=== PATIENT | female | born 1985 | race Caucasian/White ===

== ENCOUNTER 2022-05-02 11:36 | Emergency (ER) | payer BC, SELFPAY ==
--- NOTE | ~2022-05-02 | US_ITS ---
Pelvic ultrasound. Clinical History: Pelvic pain Technique: Realtime transabdominal and transvaginal scanning of the pelvis was performed. Color flow Doppler and Doppler spectral analysis were performed. Findings: The uterus is retroverted. The endometrial stripe has a thickness of 5 mm. No focal mass i s identified. The right ovary measures 6.4 x 6.4 x 5.1 cm. Simple right ovarian cyst measures 6.1 cm in diameter. The left ovary measures 2.6 x 1.4 x 2.6 cm. No significant left ovarian or adnexal mass is seen. *Flow present in both ovaries on Doppler spectral analysis. There is no evidence of free fluid in the cul de sac. Impression: 6.1 cm simple right ovarian cyst. No evidence for torsion. Reviewed, dictated and finalized at [facility]. Impression: 6.1 cm simple right ovarian cyst. No evidence for torsion.
--- NOTE | ~2022-05-02 | CT_ITS ---
EXAMINATION: CT abdomen pelvis w con DATE: 05/02/2022 12:46 INDICATION: Right lower quadrant abdominal pain. TECHNIQUE: Computed tomography (CT) of the abdomen and pelvis was performed with 100 mL Omnipaque 350 intravenous contrast. Automated exposure control and iterative reconstruction technique were employe d. The dose-length product was 284.20 mGy-cm. COMPARISON: None. FINDINGS: The visualized portions of the lung bases demonstrate mild atelectasis. No pleural effusion . The heart size is normal. No pericardial effusion. There is a 6 mm cyst in the liver. The gallbladd er, spleen, pancreas, and adrenal glands are normal. There are cysts in the kidneys measuring up to 7 mm. There are no dilated loops of bowel. The appendix is normal. There is a 5.1 cm cyst in right ova ry. There is a right inguinal hernia containing fat with fat stranding suggesting inflammation or sca rring. There are no pathologically enlarged lymph nodes. There is no free intraperitoneal fluid. The bones are unremarkable. IMPRESSION: 1. Right femoral hernia containing fat. Fat stranding may be inflammation or scarring. 2. 5.1 cm cyst in right ovary, likely benign. Consider pelvis ultrasound. Reviewed, dictated and finalized at location [facility]. IMPRESSION: 1. Right femoral hernia containing fat. Fat stranding may be inflammation or sc arring. 2. 5.1 cm cyst in right ovary, likely benign. Consider pelvis ultrasound.
[2022-05-02 11:39] VITALS: BP 150/102; RESP 16; TEMP 36.3; O2SAT 100
[2022-05-02 11:50] LABS: Basophils Percent Auto 0.4 % (0.2-1.2); Eosinophils Absolute Auto 0.1 K/mm3 (0-0.3); Hematocrit 41.2 % (37.0-47.0); Hemoglobin 14.1 g/dL (12.0-15.0); Immature Granulocyte Absolute 0.03 K/mm3 (0.00-0.031); Immature Granulocyte Percent A 0.4 % (0-0.5); Lymphocytes Absolute Auto 2.09 K/mm3 (0.9-3.2); Mean Corpuscular HGB Conc 34.2 g/dl (32-36); Mean Corpuscular Hemoglobin 32.3 pg (26-34); Mean Corpuscular Volume 94.3 fl (80-100); Mean Platelet Volume 8.8 fl (7.4-10.4); Monocytes Absolute Auto 0.5 K/mm3 (0.1-0.6); Monocytes Percent Auto 7.5 % (2.6-8.5); Neutrophils Absolute Auto 4.2 K/mm3 (1.3-6.7); Neutrophils Percent Auto 60.7 % (45.5-73.1); Platelet Count Result 314 k/mm3 (150-375); Red Blood Count 4.37 M/mm3 (4.2-5.4); Red Cell Distribution Width 11.7 % (11.5-14.5)
[2022-05-02 11:58] LABS: Alanine Aminotransferase 21 U/L (6-35); Albumin Level 4.7 g/dL (3.5-5.1); Alkaline Phosphatase 103 U/L (38-126); Anion Gap 6 mmol/L (8-16); Aspartate Amino Transferase 24 U/L (14-36); Bilirubin,Total 2.2 mg/dL (0.2-1.3); Blood Urea Nitrogen 9 mg/dL (7-17); Calcium 9.2 mg/dL (8.4-10.2); Carbon Dioxide 30 mmol/L (22-30); Chloride 105 mmol/L (98-107); Estimated CRCL calculation 78 ml/min; Estimated Glomerular Filt Rate > 60; Glucose 94 mg/dL (65-110); Lipase 57 U/L (23-300); Potassium 3.9 mmol/L (3.4-5.0); Sodium 141 mmol/L (137-145)
[2022-05-02] MEDS: SODIUM CHLORIDE 0.9% IV 1,000 ML 999 ML IV CONT (12:11)
[2022-05-02] MEDS: KETOROLAC 30 MG/ML VIAL (*BKC) IV PUSH (12:11)
[2022-05-02 12:20] LABS: Add Urine Microscopic? YES; Appearance Urine Turbid (Clear); Bacteria Urine 3+ /hpf; Bilirubin Urine Negative (Negative); Blood Urine 1+ (Negative); Color Urine Dark Yellow (Yellow); Glucose Urine UA Negative (Negative); Ketones Urine 1+ mg/dL (Negative); Leukocyte Esterase Ur Trace LEU/UL (Negative); Need Manual Microscopic Reviewed; Nitrate Urine Negative (Negative); Protein Urine 2+ mg/dL (Negative); Specific Grav Ur 1.023 (1.001-1.035); Squamous Epithelial Cell Urine Many /hpf (Few); WBC Urine 0-5 /hpf
--- NOTE | 2022-05-02 15:24 | ED.ABDPAIN ---
HPI - Abdominal Pain General Chief Complaint: Abdominal Pain Stated Complaint: hernia Time Seen by Provider: 05/02/22 11:45 Source: RN notes reviewed History of Present Illness HPI narrative: Patient presents emergency department from home for abdominal pain. Patient states that symptoms began 2 days ago after she was lifting a heavy container states she noted pain in the right lower quadrant with a small mass noted there states that the area is tender and she is concerned about a hernia. She states that her mother has a hernia in the same area. She states that she has had no fevers or chills she denies any nausea vomiting or diarrhea. States that the area of swelling does not seem to get larger or smaller states she is currently on her menstrual cycle. States she did not take anything for the pain Related Data Allergies Allergy/AdvReac Type Severity Reaction Status Date / Time No Known Allergies Allergy Verified 05/02/22 11:37 Review of Systems Review of Systems: Gen.: Denies fevers or chills ENT: Denies congestion Respiratory: Denies shortness of breath or cough CV: Denies chest pain or palpitations GI: See HPI states a menstrual cycle Musculoskeletal: Denies back pain or muscle pain Neuro: Denies numbness, tingling, weakness or focal weakness Skin: Denies rash Except as documented, all other systems reviewed and negative [facility] Past Medical History Medical History (Updated 05/02/22 @ 15:28 by Neel Lee DO) Patient denies significant medical history Social History Social History (Updated 05/02/22 @ 15:26 by Neel Lee DO) Smoking status: Never smoker Exam Narrative: APPEARANCE: No acute distress, nontoxic, resting in bed EYES: EOMI HEENT: Normocephalic, atraumatic, OMM RESPIRATORY: No respiratory distress Clear to auscultation bilaterally with no rhonchi wheezing or rales. CARDIOVASCULAR: Regular rate and rhythm without murmurs rubs or gallops. ABDOMINAL: Soft, nondistended mild tenderness in the right lower quadrant no tenderness in the right upper quadrant, left upper quadrant left lower quadrant no rebound or guarding, the right inguinal region has a small firm hernia palpated that is tender to palpation and not reducible MUSCULOSKELETAl: Moves all extremities. No clubbing, cyanosis or edema. NEURO: Awake and alert. Following commands, speech normal, no focal deficits SKIN:: Warm, dry. No rashes lesions or abrasions PSYCHIATRIC: Normal affect/mood, Course Course Emergency Course: Discussed with Dr. Douglas for general surgery presentation work-up reviewed the patient's CT scan this time feels patient may be discharged to follow-up as an outpatient has hernia only containing fat at this time Discussed with patient results of workup and diagnosis. Discussed need for follow-up with primary care, proper use of medication, and reasons to return to the emergency department. Patient understands and agrees to current treatment plan discussed with patient hernia need follow-up with general surgery also discussed ovarian cyst and need follow-up with [facility] for she follows with Dr. Godinez Vital Signs Vital signs: Vital Signs Temperature 97.3 F L 05/02/22 11:39 Respiratory Rate 16 05/02/22 11:39 Blood Pressure 150/102 H 05/02/22 11:39 Pulse Oximetry 100 05/02/22 11:39 Oxygen Delivery Room Air 05/02/22 11:39 Temperature 97.3 F L 05/02/22 11:39 Respiratory Rate 16 05/02/22 11:39 Blood Pressure 150/102 H 05/02/22 11:39 Pulse Oximetry 100 05/02/22 11:39 Oxygen Delivery Room Air 05/02/22 11:39 MDM - Abdominal Pain MDM Narrative Medical decision making narrative: Patient presented for right lower quadrant abdominal pain notes a small mass in the area that is consistent with a hernia CT scan only shows a fat-containing hernia with no bowel present discussed this with general surgeon to feel the patient to be discharged home as an outpatient also has ovarian cyst f
[2022-05-02] MEDS: NITROFURANTOIN MONOHYD MACROCR 100 MG CAP PO (15:36)
[2022-05-02 15:43] VITALS: BP 136/90; PULSE 86; RESP 14; O2SAT 100
== END 2022-05-02 15:44 | disposition home or self-care (01) ==
PROVIDERS: Emergency Provider Emergency Medicine; PCP Internal Medicine
DX: K41.90 Unilateral femoral hernia, without obstruction or gangrene, not specified as recurrent (principal); N83.201 Unspecified ovarian cyst, right side; N39.0 Urinary tract infection, site not specified
CPT/HCPCS: 36415; 74177; 76830; 76856; 80053; 81001; 81025; 83690; 85025; 96361; 96374; 99284; A9270; J1885; J7030; Q9967

== ENCOUNTER 2023-01-17 21:06 | Emergency (ER) | payer BC, SELFPAY ==
[2023-01-17 21:43] VITALS: BP 158/106; PULSE 88; RESP 18; TEMP 36.3; O2SAT 98
--- NOTE | 2023-01-17 22:59 | ED.GENADULT ---
[facility] General Adult General Chief complaint: Neck Pain/Injury Stated complaint: Can't turn head Time Seen by Provider: 01/17/23 22:59 Source: patient Mode of arrival: ambulatory Limitations: no limitations History of Present Illness [facility] narrative: this is a 37-year-old female who presents to the ED with chief complaint of left-sided neck pain X2 days. Reports that she has had recent upper respiratory infection and cough. She feels the cough is brought on the neck pain. She feels very tight in the left side of the neck. Denies fevers, chills, nausea, vomiting, headache. Related Data Allergies Allergy/AdvReac Type Severity Reaction Status Date / Time No Known Allergies Allergy Verified 05/12/22 14:15 Review of Systems Review of Systems: All systems as dictated in [facility] Past Medical History Medical History Patient denies significant medical history Social History Social History (Updated 05/12/22 @ 14:17 by Geri Almaraz MA) Smoking status: Never smoker Alcohol intake: never Substance use: never Substance use type: does not use Living arrangements: with family Gender identity (if verbalized by the patient): Female Sexual Orientation (if Verbalized by the Patient): Straight or Heterosexual Exam Narrative: GENERAL: Well-appearing, well-nourished, and in no acute distress. HEAD: Normocephalic, atraumatic. EYES: PERRLA and EOMI. ENT: Nares clear, no rhinorrhea or epistaxis. Mucous membranes moist. Oropharynx without tonsillar hypertrophy exudate or other lesions. NECK: Supple. No adenopathy or masses. No meningeal signs. CHEST: No respiratory distress. Clear to auscultation. No wheezes rales or rhonchi HEART: Regular rate and rhythm. No murmur heard. Normal peripheral pulses. ABDOMEN: Soft, nontender, nondistended, normal active bowel sounds. MSK: Left paraspinal tenderness in the C-spine. No midline spinal tenderness throughout. Limited range of motion due to pain, worse with turning the head to the left. SKIN: Warm, dry, no rash. NEURO: Alert and oriented x3. No focal deficits. PSYCH: Normal mood and affect. Course Vital Signs Vital signs: Vital Signs Temperature 97.4 F L 01/17/23 21:43 Pulse Rate 88 01/17/23 21:43 Respiratory Rate 18 01/17/23 21:43 Blood Pressure 158/106 H 01/17/23 21:43 Pulse Oximetry 98 01/17/23 21:43 Oxygen Delivery Room Air 01/17/23 21:43 Temperature 97.4 F L 01/17/23 21:43 Pulse Rate 88 01/17/23 21:43 Respiratory Rate 18 01/17/23 21:43 Blood Pressure 158/106 H 01/17/23 21:43 Pulse Oximetry 98 01/17/23 21:43 Oxygen Delivery Room Air 01/17/23 21:43 Medical Decision Making MDM Narrative Medical decision making narrative: This is a 37-year-old female who presents to the ED with chief complaint of left-sided neck pain, and she feels that it was precipitated by lingering cough. Vitals are normal. Exam shows difficulty with left rotation and left left-sided tightness of the cervical paraspinal muscles. No meningeal signs or any risk factors for meningitis. Pain seems to be muscular. Muscle relaxers given. Pt will be discharged in stable condition. Return precautions given and supportive measures discussed. Pt is understanding and agreeable with plan for discharge and follow-up with PCP. Vital Signs Vital Signs: Vital Signs Temperature 97.4 F L 01/17/23 21:43 Pulse Rate 88 01/17/23 21:43 Respiratory Rate 18 01/17/23 21:43 Blood Pressure 158/106 H 01/17/23 21:43 Pulse Oximetry 98 01/17/23 21:43 Oxygen Delivery Room Air 01/17/23 21:43 Temperature 97.4 F L 01/17/23 21:43 Pulse Rate 88 01/17/23 21:43 Respiratory Rate 18 01/17/23 21:43 Blood Pressure 158/106 H 01/17/23 21:43 Pulse Oximetry 98 01/17/23 21:43 Oxygen Delivery Room Air 01/17/23 21:43 Discharge Plan Discharge Clinical Impr
[2023-01-17] MEDS: ORPHENADRINE CITRATE 100 MG TABLET.ER PO (23:05)
[2023-01-17] MEDS: KETOROLAC 30 MG/ML VIAL (*BKC) IM (23:05)
== END 2023-01-17 23:26 | disposition home or self-care (01) ==
LOC: ANHED 23:15
PROVIDERS: Emergency Provider Physician Assistant; PCP Internal Medicine
DX: S16.1XXA Strain of muscle, fascia and tendon at neck level, initial encounter (principal); X50.9XXA Other and unspecified overexertion or strenuous movements or postures, initial encounter
CPT/HCPCS: 96372; 99283; A9270; J1885

== ENCOUNTER 2023-01-22 20:51 | Emergency (ER) | payer BC, SELFPAY ==
--- NOTE | ~2023-01-22 | XR_ITS ---
EXAMINATION: [id number] DATE: 01/22/2023 23:30 INDICATION: Neck pain after coughing. TECHNIQUE: 4 views of cervical spine were obtained. COMPARISON: None. FINDINGS: There is 8 degrees levocurvature of cervicothoracic spine. Vertebral body heights are jose guadalupe l. Intervertebral disc heights are normal. There is multilevel mild facet joint osteoarthritis. At C7 -T1, there is moderate facet joint osteoarthritis. No central canal stenosis or prevertebral soft tis herrera swelling. IMPRESSION: 1. Cervical facet joint osteoarthritis. Reviewed, dictated and finalized at location [facility]. [facility] [employer]
[2023-01-22 20:58] VITALS: BP 153/109; PULSE 131; RESP 22; TEMP 37; O2SAT 100
[2023-01-22 23:17] VITALS: BP 157/109; PULSE 96; RESP 18; O2SAT 100
--- NOTE | 2023-01-22 23:46 | ED.GENADULT ---
HPI - General Adult General Chief complaint: Neck Pain/Injury Stated complaint: neck pain Time Seen by Provider: 01/22/23 23:06 History of Present Illness HPI narrative: Patient is a 37-year-old female who presents ER with left-sided neck pain. Worsening over last couple weeks. Initially had a cough that began everything. She has developed increased pain over the left neck and has difficulty turning to the left side. She was seen in the ER recently and prescribed anti-inflammatories as well as muscle relaxers. These are not helping her symptoms. Earlier today while crying she had some tingling in her arms. No fevers or chills or sweats. No lower extremity weakness or numbness. No arm weakness despite the temporary numbness she had earlier. No trauma to the neck. Related Data Allergies Allergy/AdvReac Type Severity Reaction Status Date / Time No Known Allergies Allergy Verified 01/22/23 23:20 Review of Systems Constitutional: Constitutional: Reports no additional constitutional complaints ENT: Reports system reviewed and no additional complaints, except as documented Cardiovascular: Cardiovascular: Reports no additional cardiovascular complaints Respiratory: Respiratory: Reports no additional respiratory complaints Musculoskeletal: Musculoskeletal: Denies arthralgias, Denies joint swelling and Reports muscle cramps Comments: Neck Pain Neurologic: Denies headache(s) and Denies focal weakness Comments: Tingling PMFSH Past Medical History Medical History Patient denies significant medical history Social History Social History (Updated 05/12/22 @ 14:17 by Geri Almaraz MA) Smoking status: Never smoker Alcohol intake: never Substance use: never Substance use type: does not use Living arrangements: with family Gender identity (if verbalized by the patient): Female Sexual Orientation (if Verbalized by the Patient): Straight or Heterosexual Exam Narrative: GENERAL: Uncomfortable-appearing, well-nourished, and in no acute distress. HEAD: Normocephalic, atraumatic. ENT: Mucous membranes moist. NECK: Supple. Left paraspinal muscle tenderness worst at c3/4, no midline tenderness, limited rotation to the left. CHEST: Clear to auscultation. No respiratory distress. HEART: Regular rate and rhythm. Normal peripheral pulses. back: No tenderness to the paraspinal musculature or midline tenderness of the T/L-spine. EXTREMITIES: Normal range of motion. No edema. NEURO: Alert and oriented x3. PSYCH: Normal mood and affect. Course Vital Signs Vital signs: Vital Signs Temperature 98.6 F 01/22/23 20:58 Pulse Rate 131 H 01/22/23 20:58 Respiratory Rate 22 H 01/22/23 20:58 Blood Pressure 153/109 H 01/22/23 20:58 Pulse Oximetry 100 01/22/23 20:58 Oxygen Delivery Room Air 01/22/23 20:58 Temperature 98.6 F 01/22/23 20:58 Pulse Rate 96 01/22/23 23:17 Respiratory Rate 18 01/22/23 23:17 Blood Pressure 157/109 H 01/22/23 23:17 Pulse Oximetry 100 01/22/23 23:17 Oxygen Delivery Room Air 01/22/23 20:58 Medical Decision Making Vital Signs Vital Signs: Vital Signs Temperature 98.6 F 01/22/23 20:58 Pulse Rate 131 H 01/22/23 20:58 Respiratory Rate 22 H 01/22/23 20:58 Blood Pressure 153/109 H 01/22/23 20:58 Pulse Oximetry 100 01/22/23 20:58 Oxygen Delivery Room Air 01/22/23 20:58 Temperature 98.6 F 01/22/23 20:58 Pulse Rate 96 01/22/23 23:17 Respiratory Rate 18 01/22/23 23:17 Blood Pressure 157/109 H 01/22/23 23:17 Pulse Oximetry 100 01/22/23 23:17 Oxygen Delivery Room Air 01/22/23 20:58 Lab Data 01/23/23 00:02 01/23/23 00:02 Labs: Lab Results 01/23/23 Range/Units 00:02 WBC 10.0 (4.5-10.0) K/mm3 RBC 4.27 (4.2-5.4) M/mm3 Hgb 13.5 (12.0-15.0) g/dL Hct 39.4 (37.0-47.0) % MCV 92.3 (80-100) fl
[2023-01-22] MEDS: diazePAM INJ (*CRX) 10 MG/2 ML SYRINGE 5 MG IV PUSH (23:57)
[2023-01-22] MEDS: SODIUM CHLORIDE 0.9% IV 1,000 ML 999 ML IV CONT (23:58)
[2023-01-22] MEDS: KETOROLAC 30 MG/ML VIAL (*BKC) IV PUSH (23:58)
[2023-01-23 00:15] LABS: Basophils Absolute Auto 0.1 K/mm3 (0.0-0.1); Basophils Percent Auto 0.5 % (0.2-1.2); Eosinophils Absolute Auto 0.1 K/mm3 (0-0.3); Eosinophils Percent Auto 0.6 % (0-4.4); Hematocrit 39.4 % (37.0-47.0); Hemoglobin 13.5 g/dL (12.0-15.0); Immature Granulocyte Absolute 0.04 K/mm3 (0.00-0.031); Immature Granulocyte Percent A 0.4 % (0-0.5); Lymphocytes Percent Auto 28.9 % (18.3-44.2); Mean Corpuscular HGB Conc 34.3 g/dl (32-36); Mean Corpuscular Hemoglobin 31.6 pg (26-34); Mean Corpuscular Volume 92.3 fl (80-100); Mean Platelet Volume 9.1 fl (7.4-10.4); Monocytes Absolute Auto 0.8 K/mm3 (0.1-0.6); Monocytes Percent Auto 7.6 % (2.6-8.5); Neutrophils Absolute Auto 6.2 K/mm3 (1.3-6.7); Platelet Count Result 354 k/mm3 (150-375); Red Blood Count 4.27 M/mm3 (4.2-5.4); Red Cell Distribution Width 11.8 % (11.5-14.5)
[2023-01-23 00:37] LABS: Alanine Aminotransferase 11 U/L (6-35); Albumin Level 4.6 g/dL (3.5-5.1); Alkaline Phosphatase 92 U/L (38-126); Anion Gap 8 mmol/L (8-16); Aspartate Amino Transferase 26 U/L (14-36); Bilirubin,Total 1.6 mg/dL (0.2-1.3); Blood Urea Nitrogen 9 mg/dL (7-17); Calcium 9.6 mg/dL (8.4-10.2); Carbon Dioxide 28 mmol/L (22-30); Chloride 105 mmol/L (98-107); Estimated CRCL calculation 87 ml/min; Estimated Glomerular Filt Rate > 60; Glucose 100 mg/dL (65-110); Potassium 3.3 mmol/L (3.4-5.0); Sodium 141 mmol/L (137-145)
== END 2023-01-23 01:55 | disposition home or self-care (01) ==
PROVIDERS: Emergency Provider Emergency Medicine; PCP Internal Medicine
DX: M62.830 Muscle spasm of back (principal); M47.812 Spondylosis without myelopathy or radiculopathy, cervical region
CPT/HCPCS: 36415; 72040; 80053; 85025; 96361; 96374; 96375; 99284; J1885; J3360; J7030